=== PATIENT | male | born 1985 | race American Indian/Alaskan Native ===

== ENCOUNTER 2017-01-11 15:32 | Emergency (ER) | payer SELFPAY ==
[2017-01-11 15:51] VITALS: BP 141/101
[2017-01-11] MEDS ORDERED: NOVOLOG SUB-Q ONE (17:22)
--- NOTE | 2017-01-11 17:32 | Emergency Department Report ---
ED Recheck HPI - General Chief Complaint: Medical Clearance Stated Complaint: REFILLS ON INSULIN Time Seen by Provider: 01/11/17 16:09 Source: patient, family Mode of arrival: Ambulatory Limitations: No Limitations - History of Present Illness Initial Comments: This is a 31-year-old male nontoxic, well nourished in appearance, no acute signs of distress presents to the ED for medication refill. Patient stated he is out of stated and lost his Lantus and Apidra. Patient stated he take 20 units of Lantus every morning and 15 units of Apidra after meals TID. Patient denies any polyuria. dysuria, fever, chills, headache, nausea, vomiting, chest pain, numbness, tingling, or abdominal pain. Denies any symptoms. Patient denies any drug allergies or PMH besides DM. MD Complaint: medication refill request Returns Today for: request for prescription Symptoms Since Prior Visit: no new symptoms Associated Symptoms: none. denies: fever, chills, chest pain, shortness of breath, rash, malaise, nasuea, abdominal pain - Related Data Previous Rx's Medication Instructions Recorded Last Taken Type Insulin Glargine [Lantus] 20 unit SUB-Q QAM 30 Days ml 01/11/17 Unknown Rx Insulin Glulisine [Apidra] 15 units SQ AC 30 Days units 01/11/17 Unknown Rx Lancets/Blood Glucose Strips [Fora 1 each MC DAILY 30 Days combo..pkg 01/11/17 Unknown Rx [id number] Strp-Lnct] ED Review of Systems ROS: Stated complaint: REFILLS ON INSULIN Other details as noted in HPI Constitutional: denies: chills, fever Eyes: denies: eye pain, eye discharge, vision change ENT: denies: ear pain, throat pain Respiratory: denies: cough, shortness of breath, wheezing Cardiovascular: denies: chest pain, palpitations Endocrine: no symptoms reported Gastrointestinal: denies: abdominal pain, nausea, diarrhea Genitourinary: denies: urgency, dysuria Musculoskeletal: denies: back pain, joint swelling, arthralgia Skin: denies: rash, lesions Neurological: denies: headache, weakness, paresthesias Psychiatric: denies: anxiety, depression Hematological/Lymphatic: denies: easy bleeding, easy bruising ED Past Medical Hx - Past Medical History Hx Diabetes: Yes - Surgical History Past Surgical History?: No - Social History Smoking Status: Never Smoker Substance Use Type: None - Medications Home Medications: Home Medications Medication Instructions Recorded Confirmed Last Taken Type Insulin Glargine [Lantus] 20 unit SUB-Q QAM 30 Days ml 01/11/17 Unknown Rx Insulin Glulisine [Apidra] 15 units SQ AC 30 Days units 01/11/17 Unknown Rx Lancets/Blood Glucose Strips [Fora 1 each MC DAILY 30 Days combo..pkg 01/11/17 Unknown Rx [id number] Strp-Lnct] ED Physical Exam - General Limitations: No Limitations General appearance: alert, in no apparent distress - Head Head exam: Present: atraumatic, normocephalic, normal inspection - Eye Eye exam: Present: normal appearance, PERRL, EOMI. Absent: scleral icterus, conjunctival injection, nystagmus, periorbital swelling, periorbital tenderness Pupils: Present: normal accommodation - ENT ENT exam: Present: normal exam, normal orophraynx, mucous membranes moist, TM's normal bilaterally, normal external ear exam - Neck Neck exam: Present: normal inspection, full ROM. Absent: tenderness, meningismus, lymphadenopathy, thyromegaly - Respiratory Respiratory exam: Present: normal lung sounds bilaterally. Absent: respiratory distress, wheezes, rales, rhonchi, stridor, chest wall tenderness, accessory muscle use, decreased breath sounds, prolonged expiratory - Cardiovascular Cardiovascular Exam: Present: regular rate, normal rhythm, normal heart sounds. Absent: irregular rhythm, systolic murmur, diastolic murmur, rubs, gallop - GI/Abdominal GI/Abdominal exam: Present: soft, normal bowel sounds. Absent: distended, tenderness, guarding, rebound, rigid, diminished bowel sounds - Rectal Rectal exam: Present: deferred - Extremities Exam Extremities exam: Present: normal inspection, full ROM, normal capillary refill. Absent: tenderness, pedal edema, joint swelling, calf tenderness - Back Exam Back exam: Present: normal inspection, full ROM. Absent: tenderness, CVA tenderness (R), CVA tenderness (L), muscle spasm, paraspinal tenderness, vertebral tenderness, rash noted - Neurological Exam Neurological exam: Present: alert, oriented X3, CN II-XII intact, normal gait, reflexes normal - Psychiatric Psychiatric exam: Present: normal affect, normal mood - Skin Skin exam: Present: warm, dry, intact, normal color. Absent: rash ED Course Vital Signs 01/11/17 15:45 Temperature 98.0 F Pulse Rate 94 H Respiratory 16 Rate Blood Pressure 141/101 O2 Sat by Pulse 100 Oximetry - Reevaluation(s) Reevaluation #1: 01/11/17 17:48 Patient is speaking in full sentences with no signs of distress noted. ED Recheck MDM - Medical Decision Making This is a 31-year-old male that presents to ED for medication refill. Patient is stable and was examined by me. UA obtained and normal. No ketones. Patient stated he did not take his medication today due to not having prescription. Patient finger stick is 342. Patient received 15 units of Apidra. Rechecked finger stick and lowered. Patient received his prescriptions for Lantus and Apidra. Patient was instructed to Follow-up with a primary care doctor in 3-5 days or if symptoms worsen and continue return to emergency room as soon as possible. At time time of discharge, the patient does not seem toxic or ill in appearance. No acute signs of distress noted. Patient agrees to discharge treatment plan of care. No further questions noted by the patient. Critical care attestation.: If time is entered above; I have spent that time in minutes in the direct care of this critically ill patient, excluding procedure time. ED Disposition Clinical Impression: Medication refill Diabetes Qualifiers: Diabetes mellitus type: other specified (including TOI) Diabetes mellitus complication status: with unspecified complications Diabetes mellitus half-way insulin use: unspecified cut plug packer insulin use status Qualified Code(s): E13.8 - Other specified diabetes mellitus with unspecified complications Disposition: DC-01 TO HOME OR SELFCARE Is pt being admited?: No Does the pt Need Aspirin: No Condition: Stable Instructions: Diabetes Mellitus Type 2 in Adults (ED), Insulin Glargine ( Injection), Insulin Glulisine (Injection) Additional Instructions: Follow-up with a primary care doctor in 3-5 days or if symptoms worsen and continue return to emergency room as soon as possible. Prescriptions: Insulin Glargine [Lantus] 20 unit SUB-Q QAM 30 Days ml Insulin Glulisine [Apidra] 15 units SQ AC 30 Days units Lancets/Blood Glucose Strips [Fora [id number] Strp-Lnct] 1 each MC DAILY 30 Days combo..pkg Referrals: PRIMARY CAREMD [Primary Care Provider] - 3-5 Days ANUPAMA HOLM MD [Staff Physician] - 3-5 Days [facility] [Outside] - 3-5 Days [facility] [Outside] - 3-5 Days Forms: Work/School Release Form(ED)
[2017-01-11 17:53] LABS: Bilirubin,Urine NEG (Negative); Blood,Urine MOD (Negative); Ketones,Urine NEG (Negative); Leukocyte Esterase,Urine NEG (Negative); Mucus,Urine FEW /HPF; Nitrite,Urine NEG (Negative)
[2017-01-11] MEDS ORDERED: MOTRIN PO ONE (18:30)
== END 2017-01-11 18:52 | disposition home or self-care (01) ==
LOC: ED 15:32
DX: Z76.0 Encounter for issue of repeat prescription (principal); E13.8 Other specified diabetes mellitus with unspecified complications
CPT/HCPCS: 81001; 82962; 96372; 99283; J1815

== ENCOUNTER 2018-10-02 02:29 | Inpatient (IN) | payer OTHER ==
[2018-10-02] MEDS ORDERED: TYLENOL PO ONE (02:41)
[2018-10-02] MEDS ORDERED: TYLENOL ONE (02:48)
[2018-10-02] MEDS ORDERED: CLEOCIN 900 MG/50 mL 900 MG/50 ML BAG IV ONE ×2 (08:11→08:21)
[2018-10-02] MEDS ORDERED: MORPHINE IV ONE ×2 (08:11→09:51)
[2018-10-02] MEDS ORDERED: NACL 0.9% 1000 ML 1,000 ML IV ONE ×2 (08:11→09:50)
[2018-10-02] MEDS ORDERED: NACL 0.9% 1000 ML 1,000 ML ONE ×2 (08:19→09:57)
[2018-10-02] MEDS ORDERED: MORPHINE ONE ×2 (08:19→09:57)
--- NOTE | 2018-10-02 08:39 | Emergency Department Report ---
- General Chief complaint: Skin/Abscess/Foreign Body Stated complaint: RECTAL PAIN Time Seen by Provider: 10/02/18 07:52 Source: patient Mode of arrival: Ambulatory Limitations: No Limitations - History of Present Illness Initial comments: This is a 33-year-old male nontoxic, well nourished in appearance, no acute signs of distress presents to the ED with c/o of perianal swelling with redness. Patient denies any surgeries. Patient denies any fever, chills, nausea, vomiting, chest pain, shortness of breath, headache or stiff neck. Patient denies any drug allergies or significant past medical history. MD complaint: abscess/boil -: days(s) Severity: mild Severity scale (0 -10): 8 Quality: aching Consistency: constant Improves with: none Worsens with: none Context: none Associated symptoms: denies other symptoms Treatments Prior to Arrival: none - Related Data Previous Rx's Medication Instructions Recorded Last Taken Type Insulin Glargine [Lantus] 20 unit SUB-Q QAM 30 Days ml 01/11/17 Unknown Rx Insulin Glulisine [Apidra] 15 units SQ AC 30 Days units 01/11/17 Unknown Rx Lancets/Blood Glucose Strips [Fora 1 each MC DAILY 30 Days combo..pkg 01/11/17 Unknown Rx [id number] Strp-Lnct] Allergies Allergy/AdvReac Type Severity Reaction Status Date / Time No Known Allergies Allergy Verified 10/02/18 07:55 Abscess Boil HPI - HPI Chief Complaint: Skin/Abscess/Foreign Body Stated Complaint: RECTAL PAIN Time Seen by Provider: 10/02/18 07:52 Home Medications: Previous Rx's Medication Instructions Recorded Last Taken Type Insulin Glargine [Lantus] 20 unit SUB-Q QAM 30 Days ml 01/11/17 Unknown Rx Insulin Glulisine [Apidra] 15 units SQ AC 30 Days units 01/11/17 Unknown Rx Lancets/Blood Glucose Strips [Fora 1 each MC DAILY 30 Days combo..pkg 01/11/17 Unknown Rx [id number] Strp-Lnct] Allergies/Adverse Reactions: Allergies Allergy/AdvReac Type Severity Reaction Status Date / Time No Known Allergies Allergy Verified 10/02/18 07:55 ED Review of Systems ROS: Stated complaint: RECTAL PAIN Other details as noted in HPI Constitutional: denies: chills, fever Eyes: denies: eye pain, eye discharge, vision change ENT: denies: ear pain, throat pain Respiratory: denies: cough, shortness of breath, wheezing Cardiovascular: denies: chest pain, palpitations Endocrine: no symptoms reported Gastrointestinal: denies: abdominal pain, nausea, diarrhea Genitourinary: denies: urgency, dysuria Musculoskeletal: denies: back pain, joint swelling, arthralgia Skin: denies: rash, lesions Neurological: denies: headache, weakness, paresthesias Psychiatric: denies: anxiety, depression Hematological/Lymphatic: denies: easy bleeding, easy bruising ED Past Medical Hx - Past Medical History Previous Medical History?: No Hx Hypertension: Yes Hx Diabetes: Yes - Surgical History Past Surgical History?: No - Social History Smoking Status: Current Every Day Smoker - Medications Home Medications: Home Medications Medication Instructions Recorded Confirmed Last Taken Type Insulin Glargine [Lantus] 20 unit SUB-Q QAM 30 Days ml 01/11/17 Unknown Rx Insulin Glulisine [Apidra] 15 units SQ AC 30 Days units 01/11/17 Unknown Rx Lancets/Blood Glucose Strips [Fora 1 each MC DAILY 30 Days combo..pkg 01/11/17 Unknown Rx [id number] Strp-Lnct] ED Physical Exam - General Limitations: No Limitations General appearance: alert, in no apparent distress - Head Head exam: Present: atraumatic, normocephalic - GI/Abdominal GI/Abdominal exam: Present: soft, normal bowel sounds. Absent: distended, tenderness, guarding, rebound, rigid, diminished bowel sounds - Rectal Rectal exam: Present: tenderness, other (rectal swelling with induration and flutance noted). Absent: decreased rectal tone, hemorrhoids, mass - Extremities Exam Extremities exam: Present: normal inspection, full ROM - Back Exam Back exam: Present: normal inspection, full ROM - Neurological Exam Neurological exam: Present: alert, oriented X3, normal gait - Psychiatric Psychiatric exam: Present: normal affect, normal mood - Skin Skin exam: Present: warm, dry, intact, normal color. Absent: rash ED Course Vital Signs 10/02/18 02:35 Temperature 97.4 F L Pulse Rate 101 H Respiratory 18 Rate Blood Pressure 157/105 O2 Sat by Pulse 99 Oximetry - Reevaluation(s) Reevaluation #1: 10/02/18 08:39 Patient is speaking in full sentences with no signs of distress noted. - Consultations Consultation #1: 10/02/18 11:37 Patient was consulted with Dr. Maurice (general surgery) about admission. ED Medical Decision Making - Lab Data Result diagrams: 10/02/18 08:24 10/02/18 08:24 - Medical Decision Making This is a 33-year-old male that presents with rectal abscess. Patient is stable and was examined by me. Patient was consulted with Dr. Goodwin increased ED plan of care. According to dev technical mgr, with GFR results being in the 30s there was a protocol used by radiologist that was used for the contrast to be administered. CT results has been dictated by radiologist. Patient was consulted with Dr. Bond (sports director) and agrees that patient should be admitted with hospitalist for further evaluation and treatment. Patient is admitted with Dr. Lyman. At time of admission, the patient does not seem toxic or ill in appearance. No acute signs of distress noted. Patient agrees to admission treatment plan of care. No further questions noted by the patient. Critical care attestation.: If time is entered above; I have spent that time in minutes in the direct care of this critically ill patient, excluding procedure time. ED Disposition Clinical Impression: Acute kidney insufficiency, Perianal abscess Disposition: OP ADMIT IP TO THIS HOSP Is pt being admited?: Yes Condition: Stable
[2018-10-02 08:40] LABS: Basophils # (Auto) 0.1 K/mm3 (0.0-0.1); Basophils % (Auto) 0.5 % (0.0-1.8); Eosinophils # (Auto) 0.1 K/mm3 (0.0-0.4); Hematocrit 41.2 % (35.5-45.6); Hemoglobin 13.8 gm/dl (11.8-15.2); Lymphocytes # (Auto) 1.6 K/mm3 (1.2-5.4); Lymphocytes % (Auto) 16.2 % (13.4-35.0); Mean Corpuscular HGB Conc 33 % (32-34); Mean Corpuscular Volume 82 fl (84-94); Monocytes # (Auto) 0.7 K/mm3 (0.0-0.8); Monocytes % (Auto) 6.7 % (0.0-7.3); Platelet Count 268 K/mm3 (140-440); Red Blood Count 5.02 M/mm3 (3.65-5.03); Red Cell Distribution Width 13.5 % (13.2-15.2)
[2018-10-02 08:59] LABS: Calcium 8.6 mg/dL (8.4-10.2)
[2018-10-02] MEDS ORDERED: HumuLIN R IV ONE (09:49)
[2018-10-02] MEDS ORDERED: HumuLIN R ONE (09:57)
--- NOTE | 2018-10-02 10:22 | Event Note ---
Date: 10/02/18 Recieved call from ED PA re: patient who presented to the ED w/ rectal abscess. Labs notable for SCr 2.3 and glucose >400. Patient recieved IV contrast for CT. Recommend admission for further evaluation in light of ASH (especially in light of IV contrast exposure), rectal abscess and uncontrolled DM. Advised PA to contact hospitalist for admission. Will follow along.
--- NOTE | 2018-10-02 10:25 | Cat Scan Report ---
CT PELVIS WITH CONTRAST HISTORY: rectal pain r/o rectal abscess. COMPARISON: None. TECHNIQUE: CT images of the pelvis were obtained following administration of intravenous contrast. Sa gittal and coronal reformatted images. All CT scans at this location are performed using CT dose redu ction for ALARA by means of automated exposure control. CONTRAST: 100 ml of intravenous contrast administered. FINDINGS: A 2.2 cm right perianal abscess is suspected on image 96, series 2. The rectum and visualized bowel l oops in the pelvis are unremarkable. The appendix is not confidently identified. The bladder, distal ureters and prostate gland are unremarkable. There is trace pelvic ascites with no evidence for free air or abscess. Vascular structures are patent. The bony structures are intact. Partial sacralization of L5 is noted. IMPRESSION: 2.2 cm right perianal abscess. Signer Name: Yaakov Smith Jr, MD Signed: 10/02/2018 10:21 AM Workstation Name: [id number]
[2018-10-02] MEDS ORDERED: DILAUDID IV ONE (14:21)
--- NOTE | 2018-10-02 18:02 | Consultation ---
History of Present Illness - Reason for Consult Consult date: 10/02/18 acute renal failure - History of Present Illness Mr. Shah is a 33yo with hx of DM since age 17 who presented to the ED with c/o of perianal swelling with redness. He denies fever, chills, N/V. He reports a hx of abnormal renal function (details unknown to patient) which was dx prior to moving to OR. He reports kidney disease was attributed to DM. He admits to poorly controlled DM as he has not been able to afford medication. He reduces the dose of insulin in order for medication to last longer. He denies a family hx of kidney disease. He denies hematuria, hemoptysis, recurrent UTI. He has a remote hx of nephrolithiais x 1. He reports NSAID use - Ibuprofen - more over the past few days. Past History Past Medical History: diabetes, other (nephrolithiasis x 1) Past Surgical History: No surgical history Social history: no significant social history Family history: cancer Medications and Allergies Allergies Allergy/AdvReac Type Severity Reaction Status Date / Time No Known Allergies Allergy Verified 10/02/18 07:55 Home Medications Medication Instructions Recorded Confirmed Last Taken Type Insulin Glargine [Lantus] 20 unit SUB-Q QAM 30 Days ml 01/11/17 10/02/18 10/01/18 Rx Insulin Glulisine [Apidra] 15 units SQ AC 30 Days units 01/11/17 10/02/18 10/01/18 Rx Lancets/Blood Glucose Strips [Fora 1 each MC DAILY 30 Days combo..pkg 01/11/17 10/02/18 10/01/18 Rx [id number] Strp-Lnct] Review of Systems All systems: negative Exam - Vital Signs Vital signs: Vital Signs Temp Pulse Resp BP Pulse Ox 97.4 F L 101 H 18 157/105 99 10/02/18 02:35 10/02/18 02:35 10/02/18 02:35 10/02/18 02:35 10/02/18 02:35 - General Appearance General appearance: well-developed, well-nourished EENT: ATNC Respiratory: Clear to Ascultation Heart: regular, S1S2 Gastrointestinal: Present: normal. Absent: tenderness, distended Integumentary: no rash, warm and dry Neurologic: no focal deficit, alert and oriented x3 Psychiatric: cooperative Results - Lab Results 10/03/18 05:04 10/03/18 05:04 Most recent lab results Calcium 8.6 mg/dL (8.4-10.2) 10/02/18 08:24 Assessment and Plan Impression: * Acute kidney injury vs underlying chronic kidney disease - baseline renal function unknown * Perianal abscess * DM - uncontrolled * NSAID use Plan: * Renal prognosis is guarded s/p IV contrast * Start IVF - NS 100ml/hour * Abx per primary team * Obtain serologies, urine studies * Avoid potential nephrotoxins - patient advised to avoid future use of NSAIDs * Dose medications for renal function
[2018-10-02 20:13] LABS: Hepatitis B Surface Antigen Non-Reactive (Negative); Hepatitis C Virus Antibody Non-Reactive (NonReactive)
[2018-10-02] MEDS: NACL 0.9% 1000 ML 1,000 ML IV SCH (20:54)
--- NOTE | 2018-10-02 21:20 | Progress Note ---
Assessment and Plan Full consult dictated. 33 y/o DM, HTN male with tender and draining perirectal abscess control BS and BP IV antibiotics sitz baths schedule for I&D in am Selected Entries 10/02/18 16:01 Temperature 97.2 F L Pulse Rate 91 H Blood Pressure 168/106 [Left] Laboratory Tests 10/02/18 10/02/18 08:24 08:24 WBC 10.0 Hgb 13.8 Hct 41.2 Potassium 4.4 BUN 18 Creatinine 2.3 H Glucose 443 H Objective Vital Signs - 12hr 10/02/18 16:01 Temperature 97.2 F L Pulse Rate 91 H Respiratory 20 Rate Blood Pressure 168/106 [Left] O2 Sat by Pulse 100 Oximetry - Labs 10/02/18 08:24 10/02/18 08:24 Diabetes panel 10/02/18 Range/Units 08:24 Sodium 133 L (137-145) mmol/L Potassium 4.4 (3.6-5.0) mmol/L Chloride 95.7 L (98-107) mmol/L Carbon Dioxide 27 (22-30) mmol/L BUN 18 (9-20) mg/dL Creatinine 2.3 H (0.8-1.5) mg/dL Glucose 443 H (75-100) mg/dL Calcium 8.6 (8.4-10.2) mg/dL Calcium panel 10/02/18 Range/Units 08:24 Calcium 8.6 (8.4-10.2) mg/dL Pituitary panel 10/02/18 Range/Units 08:24 Sodium 133 L (137-145) mmol/L Potassium 4.4 (3.6-5.0) mmol/L Chloride 95.7 L (98-107) mmol/L Carbon Dioxide 27 (22-30) mmol/L BUN 18 (9-20) mg/dL Creatinine 2.3 H (0.8-1.5) mg/dL Glucose 443 H (75-100) mg/dL Calcium 8.6 (8.4-10.2) mg/dL Adrenal panel 10/02/18 Range/Units 08:24 Sodium 133 L (137-145) mmol/L Potassium 4.4 (3.6-5.0) mmol/L Chloride 95.7 L (98-107) mmol/L Carbon Dioxide 27 (22-30) mmol/L BUN 18 (9-20) mg/dL Creatinine 2.3 H (0.8-1.5) mg/dL Glucose 443 H (75-100) mg/dL Calcium 8.6 (8.4-10.2) mg/dL
[2018-10-02] MEDS ORDERED: TYLENOL PO PRN (21:55)
[2018-10-02] MEDS ORDERED: REGLAN IV PRN (21:55)
[2018-10-02] MEDS ORDERED: SODIUM CHLORIDE FLUSH SYRINGE 10 ML IV PRN (21:55)
[2018-10-02] MEDS: MORPHINE IV PRN (22:45)
[2018-10-02] MEDS: SODIUM CHLORIDE FLUSH SYRINGE 10 ML IV SCH (22:49)
[2018-10-02] MEDS: PEPCID IV SCH (22:53)
[2018-10-02] MEDS ORDERED: VANCOMYCIN PHARMACY TO DOSE IV SCH (23:00)
[2018-10-02] MEDS ORDERED: UNASYN IV SCH (23:00)
[2018-10-03] MEDS ORDERED: VANCOMYCIN 1,750 MG in NACL 0.9% 500 ML 500 ML IV ONE
[2018-10-03] MEDS: HumaLOG SUB-Q SCH ×4 (00:52→19:54)
[2018-10-03 01:14] LABS: Bilirubin,Urine NEG (Negative); Blood,Urine SM (Negative); Color,Urine Straw (Yellow); Urobilinogen,Urine < 2.0 mg/dL (<2.0)
--- NOTE | 2018-10-03 01:14 | Event Note ---
Date: 10/02/18 Please see h/p in reports L Gluteal abscess CKD IDDM
[2018-10-03 01:29] LABS: Creatinine,Urine 51.9 mg/dL (0.1-20.0); Protein/Creatinine Ratio,Urine 1.95
--- NOTE | 2018-10-03 01:53 | History and Physical Report ---
CHIEF COMPLAINT: Left gluteal/perirectal abscess, which is draining. HISTORY OF PRESENT ILLNESS: A 33-year-old -[place] male comes in for perirectal swelling and pain near the gluteal region. The swelling is about 2 cm x 2 cm and draining pus. Pain is about 8 on a scale of 1-10. No cause for the abscess present. PAST MEDICAL HISTORY: Significant for hypertension and diabetes. PAST SURGICAL HISTORY: None. SOCIAL HISTORY: Current every day smoker. FAMILY HISTORY: Hypertension. CURRENT MEDICATIONS: Insulin Lantus 20 units in the morning and Apidra 15 units before each meal. REVIEW OF SYSTEMS: Significant for left perirectal abscess. Otherwise, review of systems negative. PHYSICAL EXAMINATION: GENERAL: Young male, cooperative during examination. VITAL SIGNS: Blood pressure is 168/106, temperature 97.2, pulse is 91, respirations are 20, sats are 100%. HEENT: Unremarkable. Pupils equal and reactive. NECK: Supple, no lymphadenopathy, no thyromegaly. LUNGS: Clear to auscultation and percussion. Good air entry. CARDIOVASCULAR: S1, S2 heard. No gallop, no murmur, no rub. Apical impulse in left fifth intercostal space and midclavicular line. ABDOMEN: Soft and benign. No hepatosplenomegaly. No guarding, no rigidity. Hernial orifices are normal. EXTREMITIES: Perirectal abscess, 2 cm x 2 cm present. Drainage present. Hard indurated present. Fluctuation present. CENTRAL NERVOUS SYSTEM: Alert and oriented x 4, nonfocal exam. SKIN: Normal. LABORATORY DATA: Significant for white count of 10,000, H and H is 13.8 and 41.2, platelet count is 268,000. Sodium is 133, BUN and creatinine is 18 and 2.3. A1c is 12.5. Hepatitis profile is negative. Pelvic CT shows 2.2-cm right perianal abscess. ASSESSMENT AND PLAN: 1. Right perianal abscess, needs I and D. IV Unasyn and vancomycin started. The patient was given clindamycin in the Emergency Room. Surgery consult requested. 2. Hypertension. Antihypertensives added. 3. Insulin-dependent diabetes. The patient started on high-dose sliding scale protocol. The patient to be changed over to basal bolus regimen. The patient counseled about diabetes. 4. Nicotine dependence. The patient counseled. 5. Deep venous thrombosis prophylaxis, Lovenox 40 mg subcutaneously daily. [facility]# [id number] DIONE/ANA
[2018-10-03] MEDS: MORPHINE IV PRN ×6 (01:57→21:43)
[2018-10-03] MEDS: UNASYN/NS 1.5 GM/50 ML 1.5 GM/50 ML BAG IV SCH ×2 (02:02→10:44)
[2018-10-03 05:46] LABS: Basophils # (Auto) 0.1 K/mm3 (0.0-0.1); Basophils % (Auto) 0.7 % (0.0-1.8); Eosinophils # (Auto) 0.2 K/mm3 (0.0-0.4); Eosinophils % (Auto) 2.2 % (0.0-4.3); Hematocrit 38.7 % (35.5-45.6); Hemoglobin 13.1 gm/dl (11.8-15.2); Lymphocytes % (Auto) 25.5 % (13.4-35.0); Mean Corpuscular HGB Conc 34 % (32-34); Mean Corpuscular Volume 81 fl (84-94); Monocytes # (Auto) 0.6 K/mm3 (0.0-0.8); Monocytes % (Auto) 7.9 % (0.0-7.3); Platelet Count 279 K/mm3 (140-440); Red Blood Count 4.76 M/mm3 (3.65-5.03); Red Cell Distribution Width 13.9 % (13.2-15.2)
[2018-10-03 06:16] LABS: Alanine Aminotransferase 14 units/L (7-56); Albumin 2.7 g/dL (3.9-5); BUN/Creatinine Ratio 8; Blood Urea Nitrogen 13 mg/dL (9-20); Calcium 8.4 mg/dL (8.4-10.2); Hemolysis Index 5
[2018-10-03] MEDS: ZOFRAN IV PRN ×2 (06:24→06:25)
--- NOTE | 2018-10-03 07:58 | Progress Note ---
Assessment and Plan Pt was being called down to surgery but refuses at this time. Went up to talk to him but he states that he does not want to proceed with s urgery. rec then to continue with antibiotics and sitz baths will sign off.. Objective Vital Signs - 12hr 10/02/18 10/03/18 10/03/18 21:19 00:02 01:46 Temperature 98.2 F 98.5 F 97.8 F Pulse Rate 87 86 84 Respiratory 19 18 17 Rate Blood Pressure 152/104 Blood Pressure 171/108 137/79 [Left] O2 Sat by Pulse 99 98 97 Oximetry 10/03/18 04:07 Temperature 98.6 F Pulse Rate 83 Respiratory 18 Rate Blood Pressure 137/98 Blood Pressure [Left] O2 Sat by Pulse 98 Oximetry - Labs 10/03/18 05:04 10/03/18 05:04 Diabetes panel 10/02/18 10/02/18 10/03/18 Range/Units 08:24 08:24 05:04 Sodium 133 L 143 D (137-145) mmol/L Potassium 4.4 3.9 (3.6-5.0) mmol/L Chloride 95.7 L 106.2 (98-107) mmol/L Carbon Dioxide 27 26 (22-30) mmol/L BUN 18 13 (9-20) mg/dL Creatinine 2.3 H 1.6 H (0.8-1.5) mg/dL Glucose 443 H 117 H (75-100) mg/dL Hemoglobin A1c 12.5 H (4-6) % Calcium 8.6 8.4 (8.4-10.2) mg/dL AST 11 (5-40) units/L ALT 14 (7-56) units/L Alkaline Phosphatase 71 (35-129) units/L Total Protein 5.8 L (6.3-8.2) g/dL Albumin 2.7 L (3.9-5) g/dL Calcium panel 10/02/18 10/03/18 Range/Units 08:24 05:04 Calcium 8.6 8.4 (8.4-10.2) mg/dL Albumin 2.7 L (3.9-5) g/dL Pituitary panel 10/02/18 10/03/18 Range/Units 08:24 05:04 Sodium 133 L 143 D (137-145) mmol/L Potassium 4.4 3.9 (3.6-5.0) mmol/L Chloride 95.7 L 106.2 (98-107) mmol/L Carbon Dioxide 27 26 (22-30) mmol/L BUN 18 13 (9-20) mg/dL Creatinine 2.3 H 1.6 H (0.8-1.5) mg/dL Glucose 443 H 117 H (75-100) mg/dL Calcium 8.6 8.4 (8.4-10.2) mg/dL Adrenal panel 10/02/18 10/03/18 Range/Units 08:24 05:04 Sodium 133 L 143 D (137-145) mmol/L Potassium 4.4 3.9 (3.6-5.0) mmol/L Chloride 95.7 L 106.2 (98-107) mmol/L Carbon Dioxide 27 26 (22-30) mmol/L BUN 18 13 (9-20) mg/dL Creatinine 2.3 H 1.6 H (0.8-1.5) mg/dL Glucose 443 H 117 H (75-100) mg/dL Calcium 8.6 8.4 (8.4-10.2) mg/dL Total Bilirubin < 0.20 (0.1-1.2) mg/dL AST 11 (5-40) units/L ALT 14 (7-56) units/L Alkaline Phosphatase 71 (35-129) units/L Total Protein 5.8 L (6.3-8.2) g/dL Albumin 2.7 L (3.9-5) g/dL
[2018-10-03] MEDS: PEPCID IV SCH (10:17)
[2018-10-03] MEDS: UNASYN/NS 3 GM/100 ML 3 GM/100 ML BAG IV SCH ×2 (12:50→17:51)
--- NOTE | 2018-10-03 15:22 | Progress Note ---
Assessment and Plan Impression: * Acute kidney injury vs underlying chronic kidney disease - baseline renal function unknown * Perianal abscess * DM - uncontrolled * NSAID use * Proteinuria - 1.9grams Plan: * Renal function improved * Continue IVF NS 100ml/hour * Abx per primary team * Per records, patient declined I&D * Await serologies * Avoid potential nephrotoxins - patient advised to avoid future use of NSAIDs * Dose medications for renal function Subjective Date of service: 10/03/18 Interval history: Patient has no complaint today. Objective - Vital Signs Vital signs: Vital Signs - 12hr 10/03/18 04:07 Temperature 98.6 F Pulse Rate 83 Respiratory 18 Rate Blood Pressure 137/98 O2 Sat by Pulse 98 Oximetry - General Appearance General appearance: well-developed, well-nourished EENT: ATNC Respiratory: Present: Clear to Ascultation Cardiology: regular, S1S2 Gastrointestinal: normal, no tenderness, no distended Integumentary: no rash, warm and dry Neurologic: no focal deficit Musculoskeletal: other (no edema) Psychiatric: cooperative - Lab 10/03/18 05:04 10/03/18 05:04 Most recent lab results Calcium 8.4 mg/dL (8.4-10.2) 10/03/18 05:04 51.9 mg/dL (0.1-20.0) H 10/02/18 01:00 101 mg/dL (5-11.8) H 10/02/18 01:00 Medications & Allergies - Medications Allergies/Adverse Reactions: Allergies No Known Allergies Allergy (Verified 10/02/18 07:55) Home Medications: Home Medications Medication Instructions Recorded Confirmed Last Taken Type Insulin Glargine [Lantus] 20 unit SUB-Q QAM 30 Days ml 01/11/17 10/02/18 10/01/18 Rx Insulin Glulisine [Apidra] 15 units SQ AC 30 Days units 01/11/17 10/02/18 10/01/18 Rx Lancets/Blood Glucose Strips [Fora 1 each MC DAILY 30 Days combo..pkg 01/11/17 10/02/18 10/01/18 Rx [id number] Strp-Lnct] Active Medications: Generic Name Dose Route Start Last Admin Trade Name Freq PRN Reason Stop Dose Admin Acetaminophen 650 mg 10/02/18 21:55 Tylenol PO Q4H PRN Pain MILD(1-3)/Fever >100.5/WAGONER Enoxaparin Sodium 40 mg 10/03/18 22:00 Lovenox SUB-Q QHS [facility] Famotidine 20 mg 10/02/18 22:00 10/02/18 22:53 Pepcid IV 20 mg QAM [facility] Administration Hydralazine HCl 10 mg 10/03/18 01:41 Apresoline IV Q4H PRN Blood Pressure Sodium Chloride 1,000 mls @ 100 mls/hr 10/02/18 19:00 10/03/18 07:37 Nacl 0.9% 1000 Ml IV Infused DIRECT [facility] Infusion Ampicillin Sodium/Sulbactam Sodium 3 gm in 100 mls @ 200 mls/hr 10/03/18 12:30 Unasyn/Ns 3 Gm/100 Ml IV Q6HR [facility] Vancomycin HCl 1,500 mg/ 530 mls @ 333.333 mls/hr 10/03/18 22:00 Sodium Chloride IV Q18H [facility] Insulin Human Lispro 0 unit 10/03/18 00:00 10/03/18 06:02 Humalog SUB-Q Not Given Q6HR [facility] Protocol Metoclopramide HCl 5 mg 10/02/18 21:55 10/02/18 22:45 Reglan IV 5 mg Q6H PRN Administration Nausea And Vomiting Morphine Sulfate 2 mg 10/02/18 21:34 10/03/18 10:02 Morphine IV 2 mg Q3H PRN Administration Pain, Moderate (4-6) Ondansetron HCl 4 mg 10/02/18 21:55 10/03/18 06:25 Zofran IV 4 mg Q8H PRN Administration Nausea And Vomiting Sodium Chloride 10 ml 10/02/18 22:00 10/02/18 22:49 Sodium Chloride Flush Syringe 10 Ml IV 10 ml BID [facility] Administration Sodium Chloride 10 ml 10/02/18 21:55 Sodium Chloride Flush Syringe 10 Ml IV PRN PRN LINE FLUSH
--- NOTE | 2018-10-03 16:19 | Progress Note ---
Assessment and Plan Assessment and plan: Perirectal abscess - Continue on IV antibiotics - Gen. surgery consulted as the patient refused surgical procedure Diabetes mellitus with hyperglycemia - A1c is 12.5 - Sliding-scale insulin, ADA diet, accucheck and adjust insulin as needed Acute renal failure likely due to vasomotor nephropathy -Nephrology appreciated -Creatinine is trending down DVT prophylaxis Disposition; continue inpatient care. History Interval history: Patient was seen and evaluated this morning, patient said pain and swelling in the rectal area is getting better. Hospitalist Physical - Physical exam Narrative exam: Not in cardiopulmonary distress. The patient appeared well nourished and normally developed. Vital signs as documented. Head exam is unremarkable. No scleral icterus . Neck is without jugular venous distension, thyromegaly, or carotid bruits. Lungs are clear to auscultation. Cardiac exam reveals regular rate and Rhythm. First and second heart sounds normal. No murmurs, rubs or gallops. Abdominal exam reveals normal bowel sounds, no masses, no organomegaly and no ao rtic enlargement. Extremities are nonedematous and both femoral and pedal pulses are normal. TAKE OFF MAN: Alert and oriented 3. No focal weakness. - Constitutional Vitals: Temp Pulse Resp BP Pulse Ox 98.6 F 83 18 137/98 98 10/03/18 04:07 10/03/18 04:07 10/03/18 04:07 10/03/18 04:07 10/03/18 04:07 Results - Labs CBC & Chem 7: 10/03/18 05:04 10/03/18 05:04 Labs: Laboratory Last Values WBC 7.7 K/mm3 (4.5-11.0) 10/03/18 05:04 RBC 4.76 M/mm3 (3.65-5.03) 10/03/18 05:04 Hgb 13.1 gm/dl (11.8-15.2) 10/03/18 05:04 Hct 38.7 % (35.5-45.6) 10/03/18 05:04 MCV 81 fl (84-94) L 10/03/18 05:04 MCH 28 pg (28-32) 10/03/18 05:04 MCHC 34 % (32-34) 10/03/18 05:04 RDW 13.9 % (13.2-15.2) 10/03/18 05:04 Plt Count 279 K/mm3 (140-440) 10/03/18 05:04 Lymph % (Auto) 25.5 % (13.4-35.0) 10/03/18 05:04 [place] % (Auto) 7.9 % (0.0-7.3) H 10/03/18 05:04 Eos % (Auto) 2.2 % (0.0-4.3) 10/03/18 05:04 Baso % (Auto) 0.7 % (0.0-1.8) 10/03/18 05:04 Lymph # 2.0 K/mm3 (1.2-5.4) 10/03/18 05:04 [place] # 0.6 K/mm3 (0.0-0.8) 10/03/18 05:04 Eos # 0.2 K/mm3 (0.0-0.4) 10/03/18 05:04 Baso # 0.1 K/mm3 (0.0-0.1) 10/03/18 05:04 Seg Neutrophils % 63.7 % (40.0-70.0) 10/03/18 05:04 Seg Neutrophils # 4.9 K/mm3 (1.8-7.7) 10/03/18 05:04 Sodium 143 mmol/L (137-145) D 10/03/18 05:04 Potassium 3.9 mmol/L (3.6-5.0) 10/03/18 05:04 Chloride 106.2 mmol/L (98-107) 10/03/18 05:04 Carbon Dioxide 26 mmol/L (22-30) 10/03/18 05:04 15 mmol/L 10/03/18 05:04 BUN 13 mg/dL (9-20) 10/03/18 05:04 1.6 mg/dL (0.8-1.5) H 10/03/18 05:04 Estimated GFR 60 ml/min 10/03/18 05:04 8 % 10/03/18 05:04 Glucose 117 mg/dL (75-100) H 10/03/18 05:04 POC Glucose 102 (70-105) 10/03/18 06:01 12.5 % (4-6) H 10/02/18 08:24 Lactic Acid 1.00 mmol/L (0.7-2.0) 10/02/18 08:24 Calcium 8.4 mg/dL (8.4-10.2) 10/03/18 05:04 < 0.20 mg/dL (0.1-1.2) 10/03/18 05:04 AST 11 units/L (5-40) 10/03/18 05:04 ALT 14 units/L (7-56) 10/03/18 05:04 71 units/L (35-129) 10/03/18 05:04 5.8 g/dL (6.3-8.2) L 10/03/18 05:04 2.7 g/dL (3.9-5) L 10/03/18 05:04 0.9 % 10/03/18 05:04 Straw (Yellow) 10/02/18 01:04 Clear (Clear) 10/02/18 01:04 6.0 (5.0-7.0) 10/02/18 01:04 Ur Specific [place] 1.015 (1.003-1.030) 10/02/18 01:04 100 mg/dl mg/dL (Negative) 10/02/18 01:04 >=500 mg/dL (Negative) 10/02/18 01:04 Neg mg/dL (Negative) 10/02/18 01:04 Sm (Negative) 10/02/18 01:04 Neg (Negative) 10/02/18 01:04 Neg (Negative) 10/02/18 01:04 < 2.0 mg/dL (<2.0) 10/02/18 01:04 Ur Leukocyte Esterase Neg (Negative) 10/02/18 01:04 1.0 /HPF (0.0-6.0) 10/02/18 01:04 3.0 /HPF (0.0-6.0) 10/02/18 01:04 U Epithel Cells (Auto) < 1.0 /HPF (0-13.0) 10/02/18 01:04 51.9 mg/dL (0.1-20.0) H 10/02/18 01:00 Protein/Creatinin Ratio 1.95 10/02/18 01:00 101 mg/dL (5-11.8) H 10/02/18 01:00 Hepatitis A IgM Ab Non-reactive (NonReactive) 10/02/18 19:17 Hep Bs Antigen Non-reactive (Negative) 10/02/18 19:17 Hep B Core IgM Ab Non-reactive (NonReactive) 10/02/18 19:17 Non-reactive (NonReactive) 10/02/18 19:17 Active Medications - Current Medications Current Medications: Generic Name Dose Route Start Last Admin Trade Name Freq PRN Reason Stop Dose Admin Acetaminophen 650 mg 10/02/18 21:55 Tylenol PO Q4H PRN Pain MILD(1-3)/Fever >100.5/[facility]AGONER Enoxaparin Sodium 40 mg 10/03/18 22:00 Lovenox SUB-Q QHS [facility] Famotidine 20 mg 10/02/18 22:00 10/02/18 22:53 Pepcid IV 20 mg QAM [facility] Administration Hydralazine HCl 10 mg 10/03/18 01:41 Apresoline IV Q4H PRN Blood Pressure Sodium Chloride 1,000 mls @ 100 mls/hr 10/02/18 19:00 10/03/18 07:37 Nacl 0.9% 1000 Ml IV Infused DIRECT [facility] Infusion Ampicillin Sodium/Sulbactam Sodium 3 gm in 100 mls @ 200 mls/hr 10/03/18 12:30 Unasyn/Ns 3 Gm/100 Ml IV Q6HR [facility] Vancomycin HCl 1,500 mg/ 530 mls @ 333.333 mls/hr 10/03/18 22:00 Sodium Chloride IV Q18H [facility] Insulin Human Lispro 0 unit 10/03/18 00:00 10/03/18 06:02 Humalog SUB-Q Not Given Q6HR [facility] Protocol Metoclopramide HCl 5 mg 10/02/18 21:55 10/02/18 22:45 Reglan IV 5 mg Q6H PRN Administration Nausea And Vomiting Morphine Sulfate 2 mg 10/02/18 21:34 10/03/18 10:02 Morphine IV 2 mg Q3H PRN Administration Pain, Moderate (4-6) Ondansetron HCl 4 mg 10/02/18 21:55 10/03/18 06:25 Zofran IV 4 mg Q8H PRN Administration Nausea And Vomiting Sodium Chloride 10 ml 10/02/18 22:00 10/02/18 22:49 Sodium Chloride Flush Syringe 10 Ml IV 10 ml BID [facility] Administration Sodium Chloride 10 ml 10/02/18 21:55 Sodium Chloride Flush Syringe 10 Ml IV PRN PRN LINE FLUSH
--- NOTE | 2018-10-03 17:16 | Consultation ---
REASON FOR CONSULTATION: Rule out perirectal abscess. HISTORY OF PRESENT ILLNESS: The patient is a 33-year-old known diabetic, hypertensive male who presents to the Emergency Room with recent onset of right buttock pain. Denied any drainage. States the pain has been going on for approximately " PAST MEDICAL HISTORY: Pertinent for diabetes, hypertension, high cholesterol and borderline renal insufficiency. PAST SURGICAL HISTORY: Status post right knee surgery, which apparently was arthroscopy. ALLERGIES: No known allergies. MEDICATIONS: Include insulin, lisinopril and statin for his cholesterol. FAMILY HISTORY: Kidney disease as well as CHF and diabetes. SOCIAL HISTORY: Smokes half a pack a day for approximately 10 years. Denies any ethanol intake. PHYSICAL EXAMINATION: GENERAL: At this time reveals the patient to be awake, alert, cooperative, in mild discomfort, but no acute distress. VITAL SIGNS: Show him to be afebrile with a temperature of 97.2, blood pressure is high at 168/106, pulse is 91, respirations are 18. LABORATORY DATA: Lab work at present includes a CBC, which shows a white count of 10, H and H is 13.8 and 41.2. Electrolytes show sodium of 133, potassium 4.4, chloride is 95, BUN is 18, creatinine is high at 2.3. Glucose is extremely high at 443. Lactic acid is 1. CT scan of the abdomen was also performed, which revealed a 2 x 2 cm right perianal abscess. Examination of the patient does indeed reveal very tender perianal abscess in the inner fold of the gluteus right by the anus. There is active purulent drainage noted and significant tenderness. IMPRESSION: At this time is that of a 33-year-old gentleman with actively, but poorly draining perirectal abscess. Also, uncontrolled blood sugars, most likely secondary to the current active infection. Also, uncontrolled hypertension, possibly secondary to pain and also the renal insufficiency previously described. PLAN: At this time would be to proceed with formal I and D of perirectal abscess once the blood sugars and blood pressure controlled. I have discussed the case with the hospitalist as well as anesthesiologist. I have explained to the patient who agrees to proceed with proper drainage. He has signed his consent. We will proceed with I and D in a.m. JOB# [id number] /NTS
[2018-10-03] MEDS: SODIUM CHLORIDE FLUSH SYRINGE 10 ML IV SCH (19:53)
[2018-10-03] MEDS: VANCOMYCIN 1,500 MG in NACL 0.9% 500 ML 500 ML IV SCH (21:35)
[2018-10-03] MEDS ORDERED: LOVENOX SUB-Q SCH ×2 (22:00)
[2018-10-04] MEDS: HumaLOG SUB-Q SCH ×5 (02:17→22:57)
[2018-10-04] MEDS: UNASYN/NS 3 GM/100 ML 3 GM/100 ML BAG IV SCH ×4 (02:18→17:29)
[2018-10-04] MEDS: SODIUM CHLORIDE FLUSH SYRINGE 10 ML IV SCH ×3 (02:18→23:00)
[2018-10-04] MEDS: MORPHINE IV PRN ×4 (06:23→21:54)
[2018-10-04 08:48] LABS: Calcium 8.2 mg/dL (8.4-10.2)
--- NOTE | 2018-10-04 08:55 | Progress Note ---
Assessment and Plan Impression: * Acute kidney injury vs underlying chronic kidney disease - baseline renal function unknown * Perianal abscess * DM - uncontrolled * NSAID use * Proteinuria - 1.9grams Plan: * Renal function improved since admission; now at a plateau - baseline unknown * Continue IVF NS 100ml/hour * Abx per primary team - patient is receiving Vanco and Ampicillin??; consider ID consult for abx management * Initially declined surgery; now in agreement * Await serologies * Avoid potential nephrotoxins - patient advised to avoid future use of NSAIDs * Dose medications for renal function Subjective Date of service: 10/04/18 Interval history: Patient reports perineal pain has worsened Objective - Vital Signs Vital signs: Vital Signs - 12hr 10/04/18 10/04/18 10/04/18 01:05 04:44 05:17 Temperature 97.4 F L 97.3 F L Pulse Rate 81 79 82 Respiratory 18 18 Rate Blood Pressure 147/87 Blood Pressure 150/87 [Left] O2 Sat by Pulse 98 98 97 Oximetry 10/04/18 08:00 Temperature 98.7 F Pulse Rate 82 Respiratory 18 Rate Blood Pressure Blood Pressure 188/107 [Left] O2 Sat by Pulse 100 Oximetry - General Appearance General appearance: well-developed, well-nourished EENT: ATNC Respiratory: Present: Clear to Ascultation Cardiology: regular, S1S2 Gastrointestinal: normal, no tenderness, no distended Integumentary: no rash, warm and dry Neurologic: alert and oriented x3 Musculoskeletal: other (no edema) Psychiatric: cooperative - Lab 10/03/18 05:04 10/05/18 04:37 Most recent lab results Calcium 8.2 mg/dL (8.4-10.2) L 10/04/18 08:25 51.9 mg/dL (0.1-20.0) H 10/02/18 01:00 101 mg/dL (5-11.8) H 10/02/18 01:00 Medications & Allergies - Medications Allergies/Adverse Reactions: Allergies No Known Allergies Allergy (Verified 10/02/18 07:55) Home Medications: Home Medications Medication Instructions Recorded Confirmed Last Taken Type Insulin Glargine [Lantus] 20 unit SUB-Q QAM 30 Days ml 01/11/17 10/02/18 10/01/18 Rx Insulin Glulisine [Apidra] 15 units SQ AC 30 Days units 01/11/17 10/02/18 10/01/18 Rx Lancets/Blood Glucose Strips [Fora 1 each DAILY 30 Days combo..pkg 01/11/17 10/02/18 10/01/18 Rx [id number] Strp-Lnct] Active Medications: Generic Name Dose Route Start Last Admin Trade Name Freq PRN Reason Stop Dose Admin Acetaminophen 650 mg 10/02/18 21:55 Tylenol PO Q4H PRN Pain MILD(1-3)/Fever >100.5/WAGONER Enoxaparin Sodium 40 mg 10/03/18 22:00 10/03/18 21:34 Lovenox SUB-Q 40 mg QHS [facility] Administration Famotidine 20 mg 10/02/18 22:00 10/03/18 10:17 Pepcid IV 20 mg QAM [facility] Administration Hydralazine HCl 10 mg 10/03/18 01:41 Apresoline IV Q4H PRN Blood Pressure Sodium Chloride 1,000 mls @ 100 mls/hr 10/02/18 19:00 10/03/18 07:37 Nacl 0.9% 1000 Ml IV Infused DIRECT [facility] Infusion Ampicillin Sodium/Sulbactam Sodium 3 gm in 100 mls @ 200 mls/hr 10/03/18 12:30 10/04/18 07:34 Unasyn/Ns 3 Gm/100 Ml IV Infused Q6HR [facility] Vancomycin HCl 1,500 mg/ 530 mls @ 333.333 mls/hr 10/03/18 22:00 10/03/18 23:46 Sodium Chloride IV Infused Q18H [facility] Insulin Glargine 20 units 10/04/18 09:00 Lantus SUB-Q QAMDIAB [facility] Insulin Human Lispro 0 unit 10/03/18 00:00 10/04/18 07:50 Humalog SUB-Q Not Given Q6HR [facility] Protocol Metoclopramide HCl 5 mg 10/02/18 21:55 10/02/18 22:45 Reglan IV 5 mg Q6H PRN Administration Nausea And Vomiting Morphine Sulfate 2 mg 10/02/18 21:34 10/04/18 06:23 Morphine IV 2 mg Q3H PRN Administration Pain, Moderate (4-6) Ondansetron HCl 4 mg 10/02/18 21:55 10/03/18 06:25 Zofran IV 4 mg Q8H PRN Administration Nausea And Vomiting Sodium Chloride 10 ml 10/02/18 22:00 10/04/18 02:18 Sodium Chloride Flush Syringe 10 Ml IV 10 ml BID [facility] Administration Sodium Chloride 10 ml 10/02/18 21:55 Sodium Chloride Flush Syringe 10 Ml IV PRN PRN LINE FLUSH
--- NOTE | 2018-10-04 10:44 | Consultation ---
History of Present Illness Consult date: 10/04/18 Reason for consult: other Requesting physician: JENNIFER MCCLAIN Chief complaint: perianal pain - History of present illness History of present illness: 33yo M with poorly controlled DM presented to the hospital with perianal pain and swelling. He was assessed to have a perianal abscess and scheduled for incision and drainage yesterday with Dr. Maurice. At the last minute, the patient canceled. He was scared for surgery and he thought he was getting better. His family convinced him to get the procedure done. As he continues to have some discomfort, although it is significantly better than when he came in, he would like to have the procedure done now. He has eaten breakfast today. No other complaints or concerns. Dr. Maurice is not available at this time to care for the patient. Therefore, we are asked to consult and treat the current condition. Past History Past Medical History: diabetes, other (nephrolithiasis x 1) Past Surgical History: No surgical history Social history: no significant social history Family history: cancer Medications and Allergies Allergies Allergy/AdvReac Type Severity Reaction Status Date / Time No Known Allergies Allergy Verified 10/02/18 07:55 Home Medications Medication Instructions Recorded Confirmed Last Taken Type Insulin Glargine [Lantus] 20 unit SUB-Q QAM 30 Days ml 01/11/17 10/02/18 10/01/18 Rx Insulin Glulisine [Apidra] 15 units SQ AC 30 Days units 01/11/17 10/02/18 10/01/18 Rx Lancets/Blood Glucose Strips [Fora 1 each MC DAILY 30 Days combo..pkg 01/11/17 10/02/18 10/01/18 Rx [id number] Strp-Lnct] Active Meds: Active Medications Acetaminophen (Tylenol) 650 mg PO Q4H PRN PRN Reason: Pain MILD(1-3)/Fever >100.5/WAGONER Enoxaparin Sodium (Lovenox) 40 mg SUB-Q QHS [facility] Last Admin: 10/03/18 21:34 Dose: 40 mg Documented by: Famotidine (Pepcid) 20 mg IV QAM [facility] Last Admin: 10/03/18 10:17 Dose: 20 mg Documented by: Hydralazine HCl (Apresoline) 10 mg IV Q4H PRN PRN Reason: Blood Pressure Sodium Chloride (Nacl 0.9% 1000 Ml) 1,000 mls @ 100 mls/hr IV DIRECT [facility] Last Infusion: 10/03/18 07:37 Dose: Infused Documented by: Ampicillin Sodium/Sulbactam Sodium (Unasyn/Ns 3 Gm/100 Ml) 3 gm in 100 mls @ 200 mls/hr IV Q6HR [facility] Last Infusion: 10/04/18 07:34 Dose: Infused Documented by: Vancomycin HCl 1,500 mg/ (Sodium Chloride) 530 mls @ 333.333 mls/hr IV Q18H [facility] Last Infusion: 10/03/18 23:46 Dose: Infused Documented by: Insulin Glargine (Lantus) 20 units SUB-Q QAMDIAB [facility] Insulin Human Lispro (Humalog) 0 unit SUB-Q Q6HR [facility]; Protocol Last Admin: 10/04/18 07:50 Dose: Not Given Documented by: Metoclopramide HCl (Reglan) 5 mg IV Q6H PRN PRN Reason: Nausea And Vomiting Last Admin: 10/02/18 22:45 Dose: 5 mg Documented by: Morphine Sulfate (Morphine) 2 mg IV Q3H PRN PRN Reason: Pain, Moderate (4-6) Last Admin: 10/04/18 06:23 Dose: 2 mg Documented by: Ondansetron HCl (Zofran) 4 mg IV Q8H PRN PRN Reason: Nausea And Vomiting Last Admin: 10/03/18 06:25 Dose: 4 mg Documented by: Sodium Chloride (Sodium Chloride Flush Syringe 10 Ml) 10 ml IV BID [facility] Last Admin: 10/04/18 02:18 Dose: 10 ml Documented by: Sodium Chloride (Sodium Chloride Flush Syringe 10 Ml) 10 ml IV PRN PRN PRN Reason: LINE FLUSH Review of Systems - Constitutional no fever, no chills, no chronic pain - Cardiovascular no chest pain, no shortness of breath - Respiratory no cough - Gastrointestinal no abdominal pain, no nausea, no vomiting, no BRBPR - Genitourinary no dysuria - Integumentary boils - Endocrine high blood sugars Exam Vital Signs Temp Pulse Resp BP Pulse Ox 97.4 F L 101 H 18 157/105 99 10/02/18 02:35 10/02/18 02:35 10/02/18 02:35 10/02/18 02:35 10/02/18 02:35 - General physical appearance Positive: well developed, well nourished, no distress, no pain, other (looks well. ) - Eyes Positive: normal occular movement - Respiratory Positive: normal expansion, normal respiratory effort - Rectum Rectum: other (1cm area of swelling and tenderness at the right lateral location of the perianal area. Small amount of erythema and purulent drainage. Otherwise, surrounding tissue is normal. Buttocks are normal. ) - Neurologic Neurologic: alert and oriented to time, place and person - Psychiatric Psychiatric: appropriate mood/affect, intact judgment & insight, cooperative Results - Labs 10/03/18 05:04 10/04/18 08:25 Abnormal lab results 10/03/18 10/03/18 10/04/18 Range/Units 18:12 22:40 07:45 Creatinine (0.8-1.5) mg/dL Glucose (75-100) mg/dL POC Glucose 396 H 179 H 271 H (70-105) Calcium (8.4-10.2) mg/dL 10/04/18 Range/Units 08:25 Creatinine 1.7 H (0.8-1.5) mg/dL Glucose 327 H (75-100) mg/dL POC Glucose (70-105) Calcium 8.2 L (8.4-10.2) mg/dL Diabetes panel 10/04/18 Range/Units 08:25 Sodium 138 (137-145) mmol/L Potassium 4.5 (3.6-5.0) mmol/L Chloride 105.0 (98-107) mmol/L Carbon Dioxide 28 (22-30) mmol/L BUN 11 (9-20) mg/dL Creatinine 1.7 H (0.8-1.5) mg/dL Glucose 327 H (75-100) mg/dL Calcium 8.2 L (8.4-10.2) mg/dL Calcium panel 10/04/18 Range/Units 08:25 Calcium 8.2 L (8.4-10.2) mg/dL Pituitary panel 10/04/18 Range/Units 08:25 Sodium 138 (137-145) mmol/L Potassium 4.5 (3.6-5.0) mmol/L Chloride 105.0 (98-107) mmol/L Carbon Dioxide 28 (22-30) mmol/L BUN 11 (9-20) mg/dL Creatinine 1.7 H (0.8-1.5) mg/dL Glucose 327 H (75-100) mg/dL Calcium 8.2 L (8.4-10.2) mg/dL Adrenal panel 10/04/18 Range/Units 08:25 Sodium 138 (137-145) mmol/L Potassium 4.5 (3.6-5.0) mmol/L Chloride 105.0 (98-107) mmol/L Carbon Dioxide 28 (22-30) mmol/L BUN 11 (9-20) mg/dL Creatinine 1.7 H (0.8-1.5) mg/dL Glucose 327 H (75-100) mg/dL Calcium 8.2 L (8.4-10.2) mg/dL - Imaging CT scan - pelvis: report reviewed, image reviewed Assessment and Plan - Patient Problems (1) Perianal abscess Current Visit: Yes Status: Acute Plan to address problem: Patient stable. He has a very small residual abscess at this point. Could be managed conservatively, but the patient wishes to have an incision and drainage. Could be performed at the bedside, but the patient declined. We'll make arrangements in the operating room. We'll return later with consent form. Brief description of procedure given. All questions answered. Time has been scheduled for tomorrow at 7:30 AM. After incision and drainage is complete, patient will be cleared from surgical standpoint for discharge. Please call with questions. Time=30min
[2018-10-04] MEDS: PEPCID IV SCH (10:53)
[2018-10-04] MEDS: LANTUS SUB-Q SCH ×2 (10:55→22:58)
--- NOTE | 2018-10-04 14:01 | Progress Note ---
Assessment and Plan Assessment and plan: Perirectal abscess - Continue on IV antibiotics - Dr. Griffith consulted and will do I/D tomorrow morning Diabetes mellitus with hyperglycemia - A1c is 12.5 - Sliding-scale insulin, ADA diet, accucheck and adjust insulin as needed Acute renal failure likely due to vasomotor nephropathy -Nephrology appreciated -Creatinine is trending down DVT prophylaxis Disposition; will be discharged tomorrow after the procedure. History Interval history: Patient was seen and evaluated this morning, patient said pain and swelling in the rectal area is getting better. Hospitalist Physical - Physical exam Narrative exam: Not in cardiopulmonary distress. The patient appeared well nourished and normally developed. Vital signs as documented. Head exam is unremarkable. No scleral icterus . Neck is without jugular venous distension, thyromegaly, or carotid bruits. Lungs are clear to auscultation. Cardiac exam reveals regular rate and Rhythm. First and second heart sounds normal. No murmurs, rubs or gallops. Abdominal exam reveals normal bowel sounds, no masses, no organomegaly and no aortic enlargement. Extremities are nonedematous and both femoral and pedal pulses are normal. QUALITY INTERN: Alert and oriented 3. No focal weakness. - Constitutional Vitals: Temp Pulse Resp BP Pulse Ox 98.7 F 82 18 188/107 100 10/04/18 08:00 10/04/18 08:00 10/04/18 08:00 10/04/18 08:00 10/04/18 08:00 Results - Labs CBC & Chem 7: 10/03/18 05:04 10/04/18 08:25 Labs: Laboratory Last Values WBC 7.7 K/mm3 (4.5-11.0) 10/03/18 05:04 RBC 4.76 M/mm3 (3.65-5.03) 10/03/18 05:04 Hgb 13.1 gm/dl (11.8-15.2) 10/03/18 05:04 Hct 38.7 % (35.5-45.6) 10/03/18 05:04 MCV 81 fl (84-94) L 10/03/18 05:04 MCH 28 pg (28-32) 10/03/18 05:04 MCHC 34 % (32-34) 10/03/18 05:04 RDW 13.9 % (13.2-15.2) 10/03/18 05:04 Plt Count 279 K/mm3 (140-440) 10/03/18 05:04 Lymph % (Auto) 25.5 % (13.4-35.0) 10/03/18 05:04 [place] % (Auto) 7.9 % (0.0-7.3) H 10/03/18 05:04 Eos % (Auto) 2.2 % (0.0-4.3) 10/03/18 05:04 Baso % (Auto) 0.7 % (0.0-1.8) 10/03/18 05:04 Lymph # 2.0 K/mm3 (1.2-5.4) 10/03/18 05:04 [place] # 0.6 K/mm3 (0.0-0.8) 10/03/18 05:04 Eos # 0.2 K/mm3 (0.0-0.4) 10/03/18 05:04 Baso # 0.1 K/mm3 (0.0-0.1) 10/03/18 05:04 Seg Neutrophils % 63.7 % (40.0-70.0) 10/03/18 05:04 Seg Neutrophils # 4.9 K/mm3 (1.8-7.7) 10/03/18 05:04 Sodium 138 mmol/L (137-145) 10/04/18 08:25 Potassium 4.5 mmol/L (3.6-5.0) 10/04/18 08:25 Chloride 105.0 mmol/L (98-107) 10/04/18 08:25 Carbon Dioxide 28 mmol/L (22-30) 10/04/18 08:25 10 mmol/L 10/04/18 08:25 BUN 11 mg/dL (9-20) 10/04/18 08:25 1.7 mg/dL (0.8-1.5) H 10/04/18 08:25 Estimated GFR 56 ml/min 10/04/18 08:25 6 % 10/04/18 08:25 Glucose 327 mg/dL (75-100) H 10/04/18 08:25 POC Glucose 197 (70-105) H 10/04/18 11:37 12.5 % (4-6) H 10/02/18 08:24 Lactic Acid 1.00 mmol/L (0.7-2.0) 10/02/18 08:24 Calcium 8.2 mg/dL (8.4-10.2) L 10/04/18 08:25 < 0.20 mg/dL (0.1-1.2) 10/03/18 05:04 AST 11 units/L (5-40) 10/03/18 05:04 ALT 14 units/L (7-56) 10/03/18 05:04 71 units/L (35-129) 10/03/18 05:04 5.8 g/dL (6.3-8.2) L 10/03/18 05:04 2.7 g/dL (3.9-5) L 10/03/18 05:04 0.9 % 10/03/18 05:04 Straw (Yellow) 10/02/18 01:04 Clear (Clear) 10/02/18 01:04 6.0 (5.0-7.0) 10/02/18 01:04 Ur Specific [place] 1.015 (1.003-1.030) 10/02/18 01:04 100 mg/dl mg/dL (Negative) 10/02/18 01:04 >=500 mg/dL (Negative) 10/02/18 01:04 Neg mg/dL (Negative) 10/02/18 01:04 Sm (Negative) 10/02/18 01:04 Neg (Negative) 10/02/18 01:04 Neg (Negative) 10/02/18 01:04 < 2.0 mg/dL (<2.0) 10/02/18 01:04 Ur Leukocyte Esterase Neg (Negative) 10/02/18 01:04 1.0 /HPF (0.0-6.0) 10/02/18 01:04 3.0 /HPF (0.0-6.0) 10/02/18 01:04 U Epithel Cells (Auto) < 1.0 /HPF (0-13.0) 10/02/18 01:04 51.9 mg/dL (0.1-20.0) H 10/02/18 01:00 Protein/Creatinin Ratio 1.95 10/02/18 01:00 101 mg/dL (5-11.8) H 10/02/18 01:00 Hepatitis A IgM Ab Non-reactive (NonReactive) 10/02/18 19:17 Hep Bs Antigen Non-reactive (Negative) 10/02/18 19:17 Hep B Core IgM Ab Non-reactive (NonReactive) 10/02/18 19:17 Non-reactive (NonReactive) 10/02/18 19:17 Active Medications - Current Medications Current Medications: Generic Name Dose Route Start Last Admin Trade Name Freq PRN Reason Stop Dose Admin Acetaminophen 650 mg 10/02/18 21:55 Tylenol PO Q4H PRN Pain MILD(1-3)/Fever >100.5/WAGONER Famotidine 20 mg 10/02/18 22:00 10/04/18 10:53 Pepcid IV 20 mg QAM SHAVON Administration Hydralazine HCl 10 mg 10/03/18 01:41 Apresoline IV Q4H PRN Blood Pressure Sodium Chloride 1,000 mls @ 100 mls/hr 10/02/18 19:00 10/03/18 07:37 Nacl 0.9% 1000 Ml IV Infused DIRECT SHAVON Infusion Ampicillin Sodium/Sulbactam Sodium 3 gm in 100 mls @ 200 mls/hr 10/03/18 12:30 10/04/18 12:29 Unasyn/Ns 3 Gm/100 Ml IV 100 mls/hr Q6HR SHAVON Administration Vancomycin HCl 1,500 mg/ 530 mls @ 333.333 mls/hr 10/03/18 22:00 10/03/18 23:46 Sodium Chloride IV Infused Q18H SHAVON Infusion Insulin Glargine 20 units 10/04/18 09:00 10/04/18 10:55 Lantus SUB-Q 20 units QAMDIAB SHAVON Administration Insulin Human Lispro 0 unit 10/03/18 00:00 10/04/18 12:28 Humalog SUB-Q 3 unit Q6HR SHAVON Administration Protocol Metoclopramide HCl 5 mg 10/02/18 21:55 10/02/18 22:45 Reglan IV 5 mg Q6H PRN Administration Nausea And Vomiting Morphine Sulfate 2 mg 10/02/18 21:34 10/04/18 10:53 Morphine IV 2 mg Q3H PRN Administration Pain, Moderate (4-6) Ondansetron HCl 4 mg 10/02/18 21:55 10/03/18 06:25 Zofran IV 4 mg Q8H PRN Administration Nausea And Vomiting Sodium Chloride 10 ml 10/02/18 22:00 10/04/18 02:18 Sodium Chloride Flush Syringe 10 Ml IV 10 ml BID SHAVON Administration Sodium Chloride 10 ml 10/02/18 21:55 Sodium Chloride Flush Syringe 10 Ml IV PRN PRN LINE FLUSH
[2018-10-04] MEDS: VANCOMYCIN 1,500 MG in NACL 0.9% 500 ML 500 ML IV SCH (15:32)
[2018-10-05] MEDS: HumaLOG SUB-Q SCH ×3 (01:17→12:57)
[2018-10-05] MEDS: UNASYN/NS 3 GM/100 ML 3 GM/100 ML BAG IV SCH ×2 (01:20→05:32)
[2018-10-05] MEDS: APRESOLINE IV PRN ×3 (01:34→14:05)
[2018-10-05 05:22] LABS: Calcium 8.5 mg/dL (8.4-10.2)
[2018-10-05] MEDS: NACL 0.9% 1000 ML 1,000 ML IV SCH ×2 (05:32→09:10)
[2018-10-05] MEDS: MORPHINE IV PRN (05:39)
[2018-10-05] MEDS ORDERED: MARCAINE 0.5% INFILTRATI ONE (07:18)
[2018-10-05] MEDS ORDERED: XYLOCAINE 1% 20 mL ONE (07:18)
[2018-10-05] MEDS: PEPCID IV SCH (07:25)
[2018-10-05] MEDS ORDERED: XYLOCAINE MPF 2% ONE (07:30)
[2018-10-05] MEDS ORDERED: DIPRIVAN 10 MG/ML IV ONE (07:30)
[2018-10-05] MEDS ORDERED: VERSED ONE (07:30)
[2018-10-05] MEDS ORDERED: SUBLIMAZE ONE (07:30)
--- NOTE | 2018-10-05 07:34 | Anesthesia Day of Surgery ---
Anesthesia Day of Surgery - Day of Surgery Patient Examined: Yes Patient H&P Reviewed: Yes Patient is NPO: Yes
--- NOTE | 2018-10-05 07:34 | Anesthesia Consultation ---
Anesthesia Consult and Med Hx Date of service: 10/05/18 - Airway Anesthetic Teeth Evaluation: Good ROM Head & Neck: Adequate Mental/Hyoid Distance: Adequate Mallampati Class: Class II Intubation Access Assessment: Good - Pulmonary Exam CTA: Yes - Cardiac Exam Cardiac Exam: RRR - Pre-Operative Health Status ASA Pre-Surgery Classification: ASA2 Proposed Anesthetic Plan: General - Pulmonary Hx Sleep Apnea: Yes (DX WITH SLEEP APNEA) - Cardiovascular System Hx Hypertension: Yes - Endocrine Hx Non-Insulin Dependent Diabetes: Yes
[2018-10-05] MEDS ORDERED: KETALAR ONE (07:42)
[2018-10-05] MEDS ORDERED: MARCAINE-EPI 0.5%-1:200,000 INFILTRATI ONE ×2 (07:52→07:56)
[2018-10-05] MEDS ORDERED: XYLOCAINE 1% 20 mL INFILTRATI ONE (07:56)
[2018-10-05] MEDS ORDERED: NACL 0.9% IR ONE (07:56)
--- NOTE | 2018-10-05 08:30 | Post Operative Note ---
Date of procedure: 10/05/18 (dictation:[id number]) Pre-op diagnosis: perianal abscess Post-op diagnosis: same Findings: small abscess with tract straight to anus. Located at right lateral wall. No residual pus seen. Procedure: I&D of perianal abscess right pudendal nerve block IVF 100cc min EBL Anesthesia: MAC Surgeon: JAYA NUÑEZ Estimated blood loss: minimal Pathology: none Condition: stable Disposition: PACU
--- NOTE | 2018-10-05 08:32 | Event Note ---
Date: 10/05/18 Pt may be discharged home from my standpoint. Rec: 1) diet as tolerated 2) Sitz baths at least 2-3x/day. Must do after each bowel movement. 3) Anal packing may be removed with first bowel movement 4) Use wet wipes to clean area after BM 5) f/u in 2 weeks. Please call with questions.
--- NOTE | 2018-10-05 08:52 | Discharge Summary ---
Providers - Providers Date of Admission: 10/02/18 14:15 Date of discharge: 10/05/18 Attending physician: JENNIFER MCCLAIN MD 10/02/18 11:38 Consult to Physician [CONS] Stat Comment: Consulting Provider: RACHAEL STOREY Physician Instructions: Reason For Exam: perianal abscess 10/02/18 11:40 Consult to Physician [CONS] Stat Comment: Consulting Provider: CHILO ENGLAND Physician Instructions: Reason For Exam: ASH [facility] Reason for admission: Peranal abscess Condition: Stable Pertinent studies: CT abdomen and pelvis Hospital course: patient admitted to the floor for the management of perianal absecess, un controlled DM and ASH. Patient was admitted to the floor, started with IV antibiotics and surgery was consulted and did incision and drainage of the abscess. ASH improved with IV fluids, Nephrlogy consult appreciated. Patient continued with his insulin and advised to have f/u with his PCP. patient was hemodynamically stable and d/nemo with PO antibiotics. Disposition: DC-01 TO HOME OR SELFCARE Time spent for discharge: 32 minutes - Discharge Diagnoses (1) Acute kidney insufficiency Status: Acute (2) Perianal abscess Status: Acute (3) Uncontrolled diabetes mellitus Status: Acute Core Measure Documentation - Palliative Care Palliative Care/ Comfort Measures: Not Applicable - Core Measures Any of the following diagnoses?: none Exam - Physical Exam Narrative exam: Not in cardiopulmonary distress. The patient appeared well nourished and normally developed. Vital signs as documented. Head exam is unremarkable. No scleral icterus . Neck is without jugular venous distension, thyromegaly, or carotid bruits. Lungs are clear to auscultation. Cardiac exam reveals regular rate and Rhythm. First and second heart sounds normal. No murmurs, rubs or gallops. Abdominal exam reveals normal bowel sounds, no masses, no organomegaly and no aortic enlargement. Extremities are nonedematous and both femoral and pedal pulses are normal. JOB RECRUITER: Alert and oriented 3. No focal weakness. - Constitutional Vitals: Temp Pulse Resp BP Pulse Ox 97.6 F 107 H 12 180/100 97 10/05/18 08:16 10/05/18 08:35 10/05/18 08:35 10/05/18 08:35 10/05/18 08:35 Plan Activity: no restrictions Weight Bearing Status: Full Weight Bearing Diet: regular Follow up with: ELSI COBB MD [Primary Care Provider] - 7 Days JAYA NUÑEZ MD [Staff Physician] - 14 Days Prescriptions: Amoxicillin/K Clav Tab [Augmentin 875 mg] 1 tab PO Q12HR #8 tab HYDROcodone/APAP 5-325 [Pierce 5/325] 1 each PO Q6HR PRN #12 tablet PRN Reason: Pain
[2018-10-05] MEDS ORDERED: NORMODYNE IV ONE ×2 (08:53→09:00)
[2018-10-05] MEDS: LANTUS SUB-Q SCH (08:55)
[2018-10-05] MEDS: DILAUDID IV PRN ×2 (08:57→09:15)
[2018-10-05] MEDS: VANCOMYCIN 1,500 MG in NACL 0.9% 500 ML 500 ML IV SCH (09:25)
--- NOTE | 2018-10-05 09:37 | Operative Report ---
PREOPERATIVE DIAGNOSIS: Perianal abscess. POSTOPERATIVE DIAGNOSIS: Perianal abscess. PROCEDURE: Incision and drainage of perianal abscess. Right pudendal nerve block. ATTENDING PHYSICIAN: Philip Griffith MD ANESTHESIA: Local MAC. ESTIMATED BLOOD LOSS: Minimal. FLUIDS: 100 mL. FINDINGS: Small 1 cm abscess cavity located on the right lateral area of the perianal area. There was a direct tract to the anus itself, but no obvious penetration through the anal wall. No pus was left. I think it was all drained out. DRAINS: None. COMPLICATIONS: None. DISPOSITION: Stable, transferred to Recovery Room. INDICATIONS: This is a 33-year-old male who presented with significant pain and swelling in the perianal area. The patient was also found to be hyperglycemic. The patient was admitted for management of the abscess and control of the blood sugars. Initially, Dr. Maurice was consulted and was planned to do an incision and drainage. However, the patient then refused. He later changed his mind, but Dr. Maurice was no longer available, so we were asked to consult. It appeared as though the abscess had significantly decreased in size; however, the patient wanted to proceed with incision and drainage and he did not want it at the bedside. Procedure, risks, benefits were explained to the patient. Risks included but were not limited to infection, bleeding, pain, injury to surrounding structures, possible need for further procedures in the future. The patient understood and consented. OPERATIVE NOTE: The patient was brought to the operating room and placed on the table in supine position, slight sedation was established, the patient was placed in right lateral decubitus position. Pressure points were padded. Sterile prep and drape was performed. Time-out was called. I began by injecting 0.5% Marcaine and 1% lidocaine near the ischial spine, I did aspirate prior to injecting, there was no blood aspiration. I injected 10 mL into that area. I then injected local around the area of the abscess. Lacrimal probe was inserted through the small opening. It went directly towards the anus, but did not go through the anal wall. Skin was excised to allow a wide opening. I did not have confidence that the patient would followup or would be able to do any dressing changes. Therefore, I made a cruciate incision and cut the corners off so that the skin would remain open and allow for any drainage of any purulent material that may still be there or may develop. Wound was washed out. As a precaution, I packed the wound with Surgicel and then we placed a Surgifoam in the anal canal. Please note, I did use lubrication to minimize any trauma to the sphincter anal wall. Dressings were placed. The patient tolerated the procedure well. There were no complications. All counts were correct at the end of the case. No cultures were taken as there was no residual purulent material to check at this time. JOB# [id number] JORDAN/ANA
--- NOTE | 2018-10-05 13:01 | Post Anesthesia Evaluation ---
- Post Anesthesia Evaluation Patient Participated: Yes Airway Patent: Yes Stable Respiratory Function: Yes Nausea/Vomiting: No Temp > 96.8F: Yes Pain Manageable: Yes Adequeate Hydration: Yes Anesthesia Complications: No
--- NOTE | 2018-10-05 14:00 | Progress Note ---
Assessment and Plan Impression: * Acute kidney injury vs underlying chronic kidney disease - baseline renal function unknown * Perianal abscess * DM - uncontrolled * NSAID use * Proteinuria - 1.9grams Plan: * Renal function improved since admission * Continue IVF NS 100ml/hour; encourage po hydration * Abx per primary team * Avoid potential nephrotoxins - patient advised to avoid future use of NSAIDs * Dose medications for renal function Subjective Date of service: 10/05/18 Interval history: Patient reports perineal pain Objective - Vital Signs Vital signs: Vital Signs - 12hr 10/05/18 10/05/18 10/05/18 04:31 06:37 07:00 Temperature 97.9 F 97.8 F 97.8 F Pulse Rate 100 H 94 H 94 H Respiratory 17 16 16 Rate Blood Pressure 150/84 176/98 176/98 Blood Pressure [Left] O2 Sat by Pulse 97 98 98 Oximetry 10/05/18 10/05/18 10/05/18 07:30 08:16 08:20 Temperature 97.6 F Pulse Rate 94 H 117 H 112 H Respiratory 12 12 Rate Blood Pressure 176/98 165/93 166/95 Blood Pressure [Left] O2 Sat by Pulse 96 97 Oximetry 10/05/18 10/05/18 10/05/18 08:25 08:30 08:35 Temperature Pulse Rate 111 H 109 H 107 H Respiratory 13 14 12 Rate Blood Pressure 170/97 176/99 180/100 Blood Pressure [Left] O2 Sat by Pulse 97 97 97 Oximetry 10/05/18 10/05/18 10/05/18 08:45 08:57 09:00 Temperature Pulse Rate 107 H 107 H 96 H Respiratory 13 12 12 Rate Blood Pressure 182/103 182/103 174/103 Blood Pressure [Left] O2 Sat by Pulse 97 96 Oximetry 10/05/18 10/05/18 10/05/18 09:15 09:30 09:50 Temperature 97.8 F Pulse Rate 91 H 92 H 91 H Respiratory 12 13 18 Rate Blood Pressure 153/92 143/91 Blood Pressure 172/102 [Left] O2 Sat by Pulse 97 96 95 Oximetry - General Appearance General appearance: well-developed, well-nourished EENT: ATNC Respiratory: Present: Clear to Ascultation Cardiology: regular, S1S2 Gastrointestinal: normal, no tenderness, no distended Integumentary: no rash, warm and dry Neurologic: no focal deficit Psychiatric: cooperative - Lab 10/03/18 05:04 10/05/18 04:37 Most recent lab results Calcium 8.5 mg/dL (8.4-10.2) 10/05/18 04:37 51.9 mg/dL (0.1-20.0) H 10/02/18 01:00 101 mg/dL (5-11.8) H 10/02/18 01:00 Medications & Allergies - Medications Allergies/Adverse Reactions: Allergies No Known Allergies Allergy (Verified 10/02/18 07:55) Home Medications: Home Medications Medication Instructions Recorded Confirmed Last Taken Type Insulin Glargine [Lantus VIAL] 20 unit SUB-Q QAM 30 Days ml 01/11/17 10/02/18 10/01/18 Rx Insulin Glulisine [Apidra] 15 units SQ AC 30 Days units 01/11/17 10/02/18 10/01/18 Rx Lancets/Blood Glucose Strips [Fora 1 each MC DAILY 30 Days combo..pkg 01/11/17 10/02/18 10/01/18 Rx [id number] Strp-Lnct] Amoxicillin/K Clav Tab [Augmentin 1 tab PO Q12HR #8 tab 10/05/18 Unknown Rx 875 mg] HYDROcodone/APAP 5-325 [Abbott 1 each PO Q6HR PRN #12 tablet 10/05/18 Unknown Rx 5/325] Active Medications: Generic Name Dose Route Start Last Admin Trade Name Freq PRN Reason Stop Dose Admin Acetaminophen 650 mg 10/02/18 21:55 Tylenol PO Q4H PRN Pain MILD(1-3)/Fever >100.5/WAGONER Famotidine 20 mg 10/02/18 22:00 10/05/18 07:25 Pepcid IV 20 mg QAM SHAVON Administration Hydralazine HCl 10 mg 10/03/18 01:41 10/05/18 07:30 Apresoline IV 10 mg Q4H PRN Administration Blood Pressure Hydromorphone HCl 0.5 mg 10/05/18 08:00 10/05/18 09:15 Dilaudid IV 10/05/18 16:00 0.5 mg Q10MIN PRN Administration Pain , Severe (7-10) Sodium Chloride 1,000 mls @ 100 mls/hr 10/02/18 19:00 10/05/18 09:10 Nacl 0.9% 1000 Ml IV 100 mls/hr DIRECT SHAVON Administration Ampicillin Sodium/Sulbactam Sodium 3 gm in 100 mls @ 200 mls/hr 10/03/18 12:30 10/05/18 05:32 Unasyn/Ns 3 Gm/100 Ml IV 100 mls/hr Q6HR SHAVON Administration Vancomycin HCl 1,500 mg/ 530 mls @ 333.333 mls/hr 10/03/18 22:00 10/05/18 09:25 Sodium Chloride IV 333.333 mls/hr Q18H SHAVON Administration Insulin Glargine 20 units 10/04/18 09:00 10/04/18 22:58 Lantus SUB-Q 20 units QAMDIAB SHAVON Administration Insulin Human Lispro 0 unit 10/03/18 00:00 10/05/18 06:37 Humalog SUB-Q Not Given Q6HR [facility] Protocol Metoclopramide HCl 5 mg 10/02/18 21:55 10/02/18 22:45 Reglan IV 5 mg Q6H PRN Administration Nausea And Vomiting Morphine Sulfate 2 mg 10/02/18 21:34 10/05/18 05:39 Morphine IV 2 mg Q3H PRN Administration Pain, Moderate (4-6) Ondansetron HCl 4 mg 10/02/18 21:55 10/03/18 06:25 Zofran IV 4 mg Q8H PRN Administration Nausea And Vomiting Sodium Chloride 10 ml 10/02/18 22:00 10/04/18 23:00 Sodium Chloride Flush Syringe 10 Ml IV 10 ml BID SHAVON Administration Sodium Chloride 10 ml 10/02/18 21:55 Sodium Chloride Flush Syringe 10 Ml IV PRN PRN LINE FLUSH
[2018-10-05 16:22] VITALS: BP 146/78
[2018-10-08 18:53] LABS: Myeloperoxidase Antibody <1.0 AI (<1.0)
== END 2018-10-05 16:45 | disposition home or self-care (01) | DRG 348 ==
LOC: ED 02:29 → 3B-SURG 14:15
PROVIDERS: ADMIT Internal Medicine; ATTEND Internal Medicine
PROC: 0D9QXZZ Drainage of Anus, External Approach (ICD-10-PCS; principal; 2018-10-05)
PROC: 3E0T3BZ Introduction of Anesthetic Agent into Peripheral Nerves and Plexi, Percutaneous Approach (ICD-10-PCS; 2018-10-05)
DX: K61.0 Anal abscess (principal); N17.9 Acute kidney failure, unspecified; F17.200 Nicotine dependence, unspecified, uncomplicated; Z79.4 Long term (current) use of insulin; I12.9 Hypertensive chronic kidney disease with stage 1 through stage 4 chronic kidney disease, or unspecified chronic kidney disease; E11.22 Type 2 diabetes mellitus with diabetic chronic kidney disease; N18.9 Chronic kidney disease, unspecified; R80.9 Proteinuria, unspecified; E11.65 Type 2 diabetes mellitus with hyperglycemia
CPT/HCPCS: 36415; 72193; 80048; 80053; 80074; 81001; 82140; 82570; 82962; 83036; 84156; 85025; 86021; 86160; 96361; 96374; 96375; 99406; G0378; J0295; J0360; J1170; J1650; J1815; J2250; J2270; J2405; J2704; J2765; J3010; J3370; J7030; J7040; Q9967

== ENCOUNTER 2018-12-20 09:54 | Emergency (ER) | payer SELFPAY ==
[2018-12-20] MEDS ORDERED: SODIUM CHLORIDE 0.9% 1000 ML 1,000 ML IV ONE ×2 (10:53→11:54)
[2018-12-20 11:16] LABS: Basophils % (Auto) 0.5 % (0.0-1.8); Eosinophils # (Auto) 0.1 K/mm3 (0.0-0.4); Eosinophils % (Auto) 1.2 % (0.0-4.3); Hematocrit 39.6 % (35.5-45.6); Hemoglobin 13.3 gm/dl (11.8-15.2); Lymphocytes # (Auto) 1.3 K/mm3 (1.2-5.4); Lymphocytes % (Auto) 15.2 % (13.4-35.0); Mean Corpuscular HGB Conc 33 % (32-34); Mean Corpuscular Volume 82 fl (84-94); Monocytes # (Auto) 0.4 K/mm3 (0.0-0.8); Monocytes % (Auto) 4.9 % (0.0-7.3); Platelet Count 221 K/mm3 (140-440); Red Blood Count 4.84 M/mm3 (3.65-5.03); Red Cell Distribution Width 13.3 % (13.2-15.2)
[2018-12-20 11:39] LABS: Calcium 8.3 mg/dL (8.4-10.2)
--- NOTE | 2018-12-20 13:50 | Emergency Department Report ---
ED General Adult HPI - General Chief complaint: Chest Pain Stated complaint: SOB/TIGHTNESS IN CHEST Time Seen by Provider: 12/20/18 10:26 Source: patient Mode of arrival: Ambulatory Limitations: No Limitations - History of Present Illness Initial comments: Patient is a 33-year-old -Armenian male who is presenting with epigastric discomfort. Patient's also states that when he stands he is very dizzy. Patient states the symptoms started approximately 2 days ago. Patient denies nausea vomiting fevers chills cough cold or congestion. Further question about the patient's lifestyle patient states that he is donating plasma twice a week for the last month and a half. - Related Data Previous Rx's Medication Instructions Recorded Last Taken Type Insulin Glargine [Lantus VIAL] 20 unit SUB-Q QAM 30 Days ml 01/11/17 10/01/18 Rx Insulin Glulisine [Apidra] 15 units SQ AC 30 Days units 01/11/17 10/01/18 Rx Lancets/Blood Glucose Strips [Fora 1 each MC DAILY 30 Days combo..pkg 01/11/17 10/01/18 Rx [id number] Strp-Lnct] Amoxicillin/K Clav Tab [Augmentin 1 tab PO Q12HR #8 tab 10/05/18 Unknown Rx 875 mg] HYDROcodone/APAP 5-325 [Faber 1 each PO Q6HR PRN #12 tablet 10/05/18 Unknown Rx 5/325] Allergies Allergy/AdvReac Type Severity Reaction Status Date / Time No Known Allergies Allergy Verified 10/02/18 07:55 ED Review of Systems ROS: Stated complaint: SOB/TIGHTNESS IN CHEST Other details as noted in HPI Comment: All other systems reviewed and negative ED Past Medical Hx - Past Medical History Hx Hypertension: Yes Hx Diabetes: Yes - Social History Smoking Status: Current Every Day Smoker Substance Use Type: Alcohol - Medications Home Medications: Home Medications Medication Instructions Recorded Confirmed Last Taken Type Insulin Glargine [Lantus VIAL] 20 unit SUB-Q QAM 30 Days ml 01/11/17 10/02/18 10/01/18 Rx Insulin Glulisine [Apidra] 15 units SQ AC 30 Days units 01/11/17 10/02/18 10/01/18 Rx Lancets/Blood Glucose Strips [Fora 1 each MC DAILY 30 Days combo..pkg 01/11/17 10/02/18 10/01/18 Rx [id number] Strp-Lnct] Amoxicillin/K Clav Tab [Augmentin 1 tab PO Q12HR #8 tab 10/05/18 Unknown Rx 875 mg] HYDROcodone/APAP 5-325 [Faber 1 each PO Q6HR PRN #12 tablet 10/05/18 Unknown Rx 5/325] ED Physical Exam - General Limitations: No Limitations General appearance: alert, in no apparent distress - Head Head exam: Present: atraumatic, normocephalic - Eye Eye exam: Present: normal appearance - ENT ENT exam: Present: mucous membranes moist - Neck Neck exam: Present: normal inspection - Respiratory Respiratory exam: Present: normal lung sounds bilaterally. Absent: respiratory distress, wheezes, rales, rhonchi - Cardiovascular Cardiovascular Exam: Present: regular rate, normal rhythm. Absent: systolic murmur, diastolic murmur, rubs, gallop - GI/Abdominal GI/Abdominal exam: Present: soft, normal bowel sounds. Absent: distended, tenderness, guarding, rebound - Rectal Rectal exam: Present: deferred - Extremities Exam Extremities exam: Present: normal inspection - Back Exam Back exam: Present: normal inspection - Neurological Exam Neurological exam: Present: alert, oriented X3 - Psychiatric Psychiatric exam: Present: normal affect, normal mood - Skin Skin exam: Present: warm, dry, intact, normal color. Absent: rash ED Course Vital Signs 12/20/18 12/20/18 09:58 10:28 Temperature 97.6 F Pulse Rate 96 H Respiratory 16 16 Rate Blood Pressure 112/84 O2 Sat by Pulse 98 98 Oximetry ED Medical Decision Making - Lab Data Result diagrams: 12/20/18 10:51 12/20/18 10:51 - Medical Decision Making Patient has been donating plasma for the past month and a half twice per week. Patient also is a diabetic and likely is developing dehydration secondary to both of these issues. Patient was hydrated with 2 L normal saline is feeling much improved. I did have a good conversation with the patient regarding his kidney function and the fact that he should stop doing plasma donations given the fact that with his diabetes he is much more prone to dehydration and could cause further kidney strain and injury. Critical care attestation.: If time is entered above; I have spent that time in minutes in the direct care of this critically ill patient, excluding procedure time. ED Disposition Clinical Impression: Acute kidney insufficiency, Hyperglycemia, Dehydration Disposition: DC-01 TO HOME OR SELFCARE Is pt being admited?: No Does the pt Need Aspirin: No Condition: Stable Instructions: Dehydration (ED), Chronic Kidney Disease (ED) Referrals: PRIMARY CARE, [Primary Care Provider] - 3-5 Days Time of Disposition: 13:50
[2018-12-20 14:00] VITALS: BP 158/103
== END 2018-12-20 14:00 | disposition home or self-care (01) ==
LOC: ED 09:54
DX: N17.9 Acute kidney failure, unspecified (principal); E86.0 Dehydration; I10 Essential (primary) hypertension; E11.65 Type 2 diabetes mellitus with hyperglycemia; F17.200 Nicotine dependence, unspecified, uncomplicated; Z79.899 Other long term (current) drug therapy
CPT/HCPCS: 36415; 80048; 85025; 93005; 93010; 96360; 96361; 99283; J7030